=== PATIENT | female | born 1960 | race Caucasian/White ===

== ENCOUNTER 2017-10-05 17:04 | Outpatient (CLI) | payer OTHER | END 2017-10-05 17:15 | disposition home or self-care (01) | LOC: RAD 17:04 | DX: M54.2 Cervicalgia (principal) ==

== ENCOUNTER → 2019-10-10 | Outpatient (CLI) | payer OTHER | END | disposition home or self-care (01) | LOC: RAD 10:04 | PROVIDERS: ATTEND Orthopaedic Surgery | DX: M79.622 Pain in left upper arm (principal); M25.522 Pain in left elbow ==

== ENCOUNTER 2024-01-23 11:24 | Outpatient (CLI) | payer OTHER | END 2024-01-23 11:34 | disposition home or self-care (01) | LOC: RAD 11:24 | PROVIDERS: ATTEND Orthopaedic Surgery | DX: M79.641 Pain in right hand (principal) ==

== ENCOUNTER 2024-04-16 08:16 | Outpatient (CLI) | payer OTHER ==
[2024-04-16 10:11] LABS: ALBUMIN 3.5 gm/dL (3.4-5.0); BILIRUBIN TOTAL 0.54 mg/dL (0.3-1.2); CALCIUM 9.2 mg/dL (8.5-10.1); CREATININE SERUM 0.69 mg/dL (0.55-1.02); GFR 86.21; GLOBULINA 3.8 G/DL (2.4-3.5); MAGNESIUM 2.1 mg/dL (1.8-2.4); PHOSPHOROUS 3.8 mg/dL (2.5-4.9); POTASSIUM 4.85 mEq/L (3.5-5.1); TOTAL PROTEIN 7.3 gm/dL (6.4-8.2)
== END 2024-04-16 08:17 | disposition home or self-care (01) ==
LOC: LAB 08:16
PROVIDERS: ATTEND Orthopaedic Surgery
DX: E55.9 Vitamin D deficiency, unspecified (principal); E21.3 Hyperparathyroidism, unspecified; M85.9 Disorder of bone density and structure, unspecified; E88.89 Other specified metabolic disorders; M81.8 Other osteoporosis without current pathological fracture